=== PATIENT | female | born 1990 | race Caucasian/White ===

== ENCOUNTER 2017-12-03 14:21 | Emergency (ER) | payer OTHER ==
[2017-12-03 15:34] LABS: URINE BLOOD (Dip) POC 2+ (NEGATIVE); URINE GLUCOSE (Dip) POC Negative (NEGATIVE); URINE KETONES (Dip) POC Negative (NEGATIVE); URINE LEUKOCYTE EST (Dip) POC Negative (NEGATIVE); URINE NITRITE (Dip) POC Negative (NEGATIVE); URINE TOTAL PROTEIN POC Negative (NEGATIVE)
== END 2017-12-03 17:00 | disposition home or self-care (01) ==
LOC: FTE 14:21
DX: F41.9 Anxiety disorder, unspecified (principal)
CPT/HCPCS: 71046; 81003; 81025; 93005; 99284-25